=== PATIENT | female | born 1995 ===

== ENCOUNTER 2020-06-04 19:07 | Emergency (ER) | payer BC, OTHER ==
[~2020-06-04] VITALS: Ht 167.6 cm; Wt 85.6 kg
[2020-06-04 19:46] LABS: ANION GAP 8 mmol/L (5-15); CALCIUM 9.3 mg/dL (8.5-10.1); CHLORIDE 108 mmol/L (98-107); CREATININE 0.63 mg/dL (0.55-1.02)
[2020-06-04 20:11] LABS: BASOPHILS % (AUTO) 0 % (0-1); EOSINOPHILS % (AUTO) 1 % (1-7); LYMPHOCYTES % (AUTO) 17 % (22-44); MEAN CORPUSCULAR HEMOGLOBIN 31.5 pg (27.0-34.8); MEAN CORPUSCULAR HGB CONC 33.7 g/dL (32.4-35.8); MEAN PLATELET VOLUME 8.6 fL (7.4-10.4); MONOCYTES % (AUTO) 6 % (2-9); NEUTROPHILS % (AUTO) 76 % (42-75); PLATELET COUNT 283 x10^3/uL (130-400); RED BLOOD COUNT 4.55 x10^6/uL (3.82-5.3); RED CELL DISTRIBUTION WIDTH 14.2 % (9.6-15.2)
[2020-06-04 20:13] LABS: MD NO
--- NOTE | 2020-06-04 22:45 | NUR ---
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 ERMD LAW AT BEDSIDE FOR EVAL AT THIS TIME.
--- NOTE | 2020-06-04 22:54 | NUR ---
PT CAME INTO ED STATING "I MISCARRIED, I WAS 9 WEEKS ALONG". PT SITTING UP ON [place]WO[place], APPEARS TO HAVE BEEN CRYING RECENTLY, SIGNIFICANT OTHER AT BS. PT NAD, ERP AT BS FOR EVAL AND POC. PT IS TO BE DC'D. WCTM.
[2020-06-04 23:07] VITALS: BP 122/78
--- NOTE | 2020-06-04 23:08 | NUR ---
Patient given discharge instructions and they have confirmed that they understand the instructions. Patient ambulatory with steady gait. nad, denies additional questions or needs at this time. no personal belongings left in room at time of dc.
== END 2020-06-04 23:08 | disposition home or self-care (01) ==
LOC: ED 22:56
DX: O03.9 Complete or unspecified spontaneous abortion without complication (principal); R10.2 Pelvic and perineal pain
CPT/HCPCS: 36415; 76801; 80048; 82040; 84702; 85025; 86901; 99284